=== PATIENT | male | born 1985 | race Caucasian/White ===

== ENCOUNTER 2017-01-25 17:54 | Emergency (ER) | payer OTHER ==
[2017-01-25 18:02] VITALS: BMI 48.4
--- NOTE | 2017-01-25 18:03 | PDOC ---
Rapid Medical Evaluation Time Seen by Provider: 01/25/17 17:57 Medical Evaluation: 01/25/17 18:01 I have performed a brief in-person evaluation of this patient. o The patient presents with a chief complaint of: Urinary pain, frequency, Rt lower back pain, was sent by kirstin CURRY r/o kidney stones. o Pertinent physical exam findings:Mid abdominal pain. + right CVA tenderness. o I have ordered the following: Urinalysis, urine culture, cbc, cmp. o The patient will proceed to the ED for further evaluation.
[2017-01-25 18:36] LABS: BASOPHIL 0.6 % (0-2.0); EOSINOPHIL 2.2 % (0-4.5); MCH 27.2 pg (25.7-33.7); MCHC 31.9 g/dl (32.0-35.9); MEAN CELL VOLUME 85.3 fl (80-96); MEAN PLT VOLUME 8.7 fl (7.5-11.1); NEUTROPHILS 72.6 % (42.8-82.8); PLATELET COUNT 321 K/MM3 (134-434); RDW 14.7 % (11.9-15.9); WHITE BLOOD COUNT 13.8 K/mm3 (4.0-10.0)
[2017-01-25 18:59] LABS: ALBUMIN 3.4 g/dl (3.4-5.0); CALCIUM 9.2 mg/dL (8.5-10.1); COCKROFT - GAULT 116.54; CREATININE 1.8 mg/dL (0.7-1.3); TOT PROT 7.4 g/dl (6.4-8.2)
[2017-01-25 19:03] LABS: BILIRUBIN,TOTAL 0.4 mg/dL (0.2-1.0)
[2017-01-25] MEDS ORDERED: SODIUM CHLORIDE 1,000 ML IV STA (19:22)
[2017-01-25] MEDS ORDERED: KETOROLAC TROMETHAMINE 30 MG/1 ML VIAL IM ONE (19:22)
[2017-01-25] MEDS ORDERED: ONDANSETRON 4 MG/2 ML VIAL IVPB ONE (19:22)
--- NOTE | 2017-01-25 19:28 | PDOC ---
History of Present Illness - General Chief Complaint: Pain, Acute Stated Complaint: PCP SENT/PAIN, ACUTE Time Seen by Provider: 01/25/17 17:57 History Source: Patient Exam Limitations: No Limitations - History of Present Illness Travel History: No Initial Comments: 01/25/17 19:23 31yo Male patient w/ PmHx: Gout, and Obesity presents to ED c/o right flank pain that began Tuesday and worsened Tuesday. Patient state he was seen at [facility] and sent for an Ultrasound that showed his "Kidneys are strained. " But was informed he needed a Ct-Scan. Associated frequent urination, n/v. Last meal today: 1530. Patient denies fever, CP, diarrhea, diff breathing, sweating, or any other complaints at this time. + Smoker. No PCP. Timing/Duration: reports: getting worse Quality: reports: moderate Abdominal Pain Onset Location: reports: flank Pain Radiation: reports: groin Activities at Onset: reports: no specific activity Treatment Prior to Arrive: worse with: analgesics, antacids, cold pack, heat, laxative, enema, other Aggravating Factors: worse with: None, Defecation, Eating, Emotional upset, Exertion, [place], Movement, Voiding, Change in position Past History - Travel Traveled outside of the country in the last 30 days: No Close contact w/someone who was outside of country & ill: No - Past Medical History Allergies/Adverse Reactions: Allergies Allergy/AdvReac Type Severity Reaction Status Date / Time No Known Allergies Allergy Verified 01/25/17 20:32 Home Medications: Ambulatory Orders Ketorolac Tromethamine [Toradol] 10 mg PO Q6H PRN #28 tablet 01/25/17 Ondansetron [Zofran Odt -] 4 mg SL Q8H PRN #30 od.tablet 01/25/17 Tamsulosin HCl [Flomax] 0.4 mg PO DAILY #30 cap.er.24h 01/25/17 Other medical history: GOUT - Psycho/Social/Smoking Cessation Hx Suicidal Ideation: No Smoking History: Current every day smoker Number of Cigarettes Smoked Daily: 10 Information on smoking cessation initiated: No Hx Alcohol Use: No Drug/Substance Use Hx: No Abd/GI Specific PMHX - Complaint Specific PMHX Colitis: No Diverticulitis: No Gall Bladder Disease: No GERD: No Hepatitis: No Irritable Bowel Synd (IBS): No Pancreatitis: No GI Ulcer Disease: No Review of Systems - Review of Systems Able to Perform ROS?: Yes Is the patient limited Bangladeshi proficient: No Constitutional: No: Chills, Fever Respiratory: No: Cough, Shortness of Breath, Stridor Cardiac (ROS): No: Chest Pain, Lightheadedness, Palpitations, Syncope, Chest Tightness ABD/GI: Yes: Nausea, Vomiting, Other (Groin pain). No: Constipated, Diarrhea, Poor Appetite, Poor Fluid Intake : Yes: Frequency. No: Dysuria, Hematuria, Pain, Urgency Musculoskeletal: Yes: Back Pain Integumentary: No: Bruising, Erythema, Rash Neurological: No: Headache, Unsteady Gait, Dizziness All Other Systems: Reviewed and Negative *Physical Exam - Vital Signs Last Vital Signs Temp Pulse Resp BP Pulse Ox 97.9 F 111 H 24 160/82 95 01/25/17 17:59 01/25/17 17:59 01/25/17 17:59 01/25/17 17:59 01/25/17 17:59 - Physical Exam General Appearance: Yes: Nourished, Appropriately Dressed, Mild Distress. No: Apparent Distress, Moderate Distress, Severe Distress Respiratory/Chest: positive: Lungs Clear, Normal Breath Sounds. negative: Chest Tender, Respiratory Distress, Accessory Muscle Use, Labored Respiration, Rapid RR Cardiovascular: positive: Regular Rhythm, Regular Rate Gastrointestinal/Abdominal: positive: Normal Bowel Sounds, Soft, Other (Large Abdomen). negative: Tender, Distended, Guarding, Rebound, Tenderness Musculoskeletal: positive: Normal Inspection, CVA Tenderness, CVA Tenderness (R ) (Mild). negative: CVA Tenderness (L), Vertebral Tenderness Extremity: positive: Normal Capillary Refill, Normal Inspection, Normal Range of Motion. negative: Pedal Edema, Swelling, Calf Tenderness, Erythema, Inflammation Integumentary: positive: Normal Color, Dry, Warm Neurologic: positive: stockroom keeper II-XII NML intact, Fully Oriented, Alert, Normal Mood/ Affect, Normal Response, Motor Strength 5/5 ED Treatment Course - LABORATORY CBC & Chemistry Diagram: 01/25/17 18:15 01/25/17 18:15 - ADDITIONAL ORDERS Additional order review: Laboratory Results 01/25/17 18:15 Sodium 142 Potassium 4.4 Chloride 104 Carbon Dioxide 31 Anion Gap 7 L BUN 21 H Creatinine 1.8 H Creat Clearance w eGFR 44.83 Random Glucose 173 H Calcium 9.2 Total Bilirubin 0.4 AST 15 ALT 29 Alkaline Phosphatase 86 Total Protein 7.4 Albumin 3.4 01/25/17 18:15 RBC 4.73 MCV 85.3 MCHC 31.9 L RDW 14.7 MPV 8.7 Neutrophils % 72.6 Lymphocytes % 16.5 Monocytes % 8.1 Eosinophils % 2.2 Basophils % 0.6 - RADIOLOGY Radiology Studies Ordered: Category Date Time Status ABDOMEN & PELVIS CT W/O CONTR [CT] Stat CT Scan 01/25/17 19:21 Ordered *DC/Admit/Observation/Transfer Diagnosis at time of Disposition: Renal colic - Discharge Dispostion Disposition: HOME Condition at time of disposition: Improved Admit: No - Prescriptions Prescriptions: Tamsulosin HCl [Flomax] 0.4 mg PO DAILY #30 cap.er.24h Ketorolac Tromethamine [Toradol] 10 mg PO Q6H PRN #28 tablet PRN Reason: Pain Ondansetron [Zofran Odt -] 4 mg SL Q8H PRN #30 od.tablet PRN Reason: Nausea - Referrals Referrals: Sameer Dunaway MD., MD [Staff Physician] - - Patient Instructions Printed Discharge Instructions: Kidney Stones -- Adult Additional Instructions: FOLLOW UP WITH DR. DUNAWAY (UROLOGY). CALL TO SCHEDULE APPOINTMENT THIS WEEK FOR FURTHER EVALUATION. TAKE MEDICATIONS PRESCRIBED. TORADOL OR TYLENOL FOR PAIN NEEDED. DRINK PLENTY FLUID. DO NOT TAKE EXTRA IBUPROFEN/MOTRIN WHILE TAKING TORADOL. RETURN IF SYMPTOMS WORSEN OR ANY CONCERNS FOR FURTHER EVALUATION. - FLOMAX: HELP PASS STONE. - TORADOL: ANTIINFLAMMATORY. - ZOFRAN: NAUSEA. Print Language: LAO
[2017-01-25 19:30] LABS: URINE APPEARANCE CLEAR; URINE BILIRUBIN NEGATIVE (NEGATIVE); URINE BLOOD 1+ (NEGATIVE); URINE COLOR STRAW; URINE GLUCOSE (UA) 1+ (NEGATIVE); URINE KETONE NEGATIVE (NEGATIVE); URINE LEUK ESTERASE NEGATIVE (NEGATIVE); URINE NITRITE NEGATIVE (NEGATIVE); URINE PROTEIN NEGATIVE (NEGATIVE); URINE UROBILINOGEN NEGATIVE E.U./dl (0.2-1.0)
[2017-01-25 19:35] LABS: URINE RBC 10 /hpf (0-3)
--- NOTE | 2017-01-25 19:54 | PDOC ---
*Physical Exam - Vital Signs Last Vital Signs Temp Pulse Resp BP Pulse Ox 97.9 F 111 H 24 160/82 95 01/25/17 17:59 01/25/17 17:59 01/25/17 17:59 01/25/17 17:59 01/25/17 17:59 ED Treatment Course - LABORATORY CBC & Chemistry Diagram: 01/25/17 18:15 01/25/17 18:15 - ADDITIONAL ORDERS Additional order review: Laboratory Results 01/25/17 01/25/17 18:15 18:15 Sodium 142 Potassium 4.4 Chloride 104 Carbon Dioxide 31 Anion Gap 7 L BUN 21 H Creatinine 1.8 H Creat Clearance w eGFR 44.83 Random Glucose 173 H Calcium 9.2 Total Bilirubin 0.4 AST 15 ALT 29 Alkaline Phosphatase 86 Total Protein 7.4 Albumin 3.4 Urine Color Straw Urine Appearance Clear Urine pH 6.0 Urine Protein Negative Urine Glucose (UA) 1+ H Urine Ketones Negative Urine Blood 1+ H Urine Nitrite Negative Urine Bilirubin Negative Urine Urobilinogen Negative Ur Leukocyte Esterase Negative Urine RBC 10 Urine WBC None Ur Epithelial Cells Rare 01/25/17 18:15 RBC 4.73 MCV 85.3 MCHC 31.9 L RDW 14.7 MPV 8.7 Neutrophils % 72.6 Lymphocytes % 16.5 Monocytes % 8.1 Eosinophils % 2.2 Basophils % 0.6 Medical Decision Making - Medical Decision Making 01/25/17 19:54 agree with care from [facility] *DC/Admit/Observation/Transfer Diagnosis at time of Disposition: Renal colic - Prescriptions Prescriptions: Tamsulosin HCl [Flomax] 0.4 mg PO DAILY #30 cap.er.24h Ketorolac Tromethamine [Toradol] 10 mg PO Q6H PRN #28 tablet PRN Reason: Pain Ondansetron [Zofran Odt -] 4 mg SL Q8H PRN #30 od.tablet PRN Reason: Nausea - Referrals Referrals: Sameer Dunaway MD., MD [Staff Physician] - - Patient Instructions Printed Discharge Instructions: Kidney Stones -- Adult Additional Instructions: FOLLOW UP WITH DR. DUNAWAY (UROLOGY). CALL TO SCHEDULE APPOINTMENT THIS WEEK FOR FURTHER EVALUATION. TAKE MEDICATIONS PRESCRIBED. TORADOL OR TYLENOL FOR PAIN NEEDED. DRINK PLENTY FLUID. DO NOT TAKE EXTRA IBUPROFEN/MOTRIN WHILE TAKING TORADOL. RETURN IF SYMPTOMS WORSEN OR ANY CONCERNS FOR FURTHER EVALUATION. - FLOMAX: HELP PASS STONE. - TORADOL: ANTIINFLAMMATORY. - ZOFRAN: NAUSEA. Print Language: ITALIAN
[2017-01-25] MEDS ORDERED: ONDANSETRON 4 MG/2 ML VIAL ONE (20:04)
[2017-01-25] MEDS ORDERED: KETOROLAC TROMETHAMINE 30 MG/1 ML VIAL ONE (20:04)
[2017-01-25] MEDS ORDERED: TAMSULOSIN HCL 0.4 MG CAP.ER.24H (FP) PO ONE (22:11)
[2017-01-25] MEDS ORDERED: ACETAMINOPHEN 325 MG TABLET (FP) PO ONE (22:12)
[2017-01-25] MEDS ORDERED: ACETAMINOPHEN 325 MG TABLET (FP) ONE (22:17)
[2017-01-25] MEDS ORDERED: TAMSULOSIN HCL 0.4 MG CAP.ER.24H (FP) ONE (22:17)
[2017-01-25 22:22] VITALS: BP 156/80; PULSE 89; TEMP 98
== END 2017-01-25 22:22 | disposition home or self-care (01) ==
LOC: JER 17:54
PROC: 3E0233Z Introduction of Anti-inflammatory into Muscle, Percutaneous Approach (ICD-10-PCS; principal; 2017-01-25)
PROC: 3E033GC Introduction of Other Therapeutic Substance into Peripheral Vein, Percutaneous Approach (ICD-10-PCS; 2017-01-25)
PROC: 3E0337Z Introduction of Electrolytic and Water Balance Substance into Peripheral Vein, Percutaneous Approach (ICD-10-PCS; 2017-01-25)
DX: N23 Unspecified renal colic (principal)
CPT/HCPCS: 36415; 74176-TC; 80053; 81003; 81015; 85025; 87086; 96361; 96372; 96374; 99283-25

== ENCOUNTER 2018-03-11 10:39 | Inpatient (IN) | payer OTHER ==
[2018-03-11 14:14] VITALS: BMI 54.8
--- NOTE | 2018-03-11 15:11 | HP ---
COWS - Scale Resting Pulse: 0= [place] 80 or Below Sweatin=Flushed/Facial Moisture Restless Observation: 1= Difficult to Sit Still Pupil Size: 1= Pupils >than Normal Bone or Joint Aches: 2= Severe Diffuse Aches Runny Nose/ Eye Tearin= Runny Nose/Eyes GI Upset > 30mins: 2= Nausea/Diarrhea Tremor Observation: 2= Slight Tremor Visible Yawning Observation: 1= 1-2x During Session Anxiety or Irritability: 2=Irritable/Anxious Goose Flesh Skin: 0=Smooth Skin COWS Score: 15 Admission ROS S - HPI Chief Complaint: "I want to get clean again and get back on track" Allergies/Adverse Reactions: Allergies Allergy/AdvReac Type Severity Reaction Status Date / Time No Known Allergies Allergy Verified 01/25/17 20:32 History of Present Illness: 32 y/o male with opioid and benzo dependence presents for detox. He reports several detox treatments in the past, this is his [facility]st time at [facility]. Exam Limitations: No Limitations - Ebola screening Have you traveled outside of the country in the last 21 days: No (N) Have you had contact with anyone from an Ebola affected area: No Have you been sick,other than usual withdrawal symptoms: No Do you have a fever: No - Review of Systems Constitutional: Loss of Appetite, Night Sweats, Changes in sleep EENT: reports: Blurred Vision, Nose Congestion Respiratory: reports: Cough Cardiac: reports: No Symptoms Reported GI: reports: Nausea, Poor Appetite, Abdominal cramping : reports: No Symptoms Reported Musculoskeletal: reports: Muscle Pain, Muscle Weakness Integumentary: reports: No Symptoms Reported Neuro: reports: Headache, Tremors Endocrine: reports: No Symptoms Reported Hematology: reports: No Symptoms Reported Psychiatric: reports: Agitated, Anxious, Depressed Patient History - Patient Medical History Hx Anemia: No Hx Asthma: No Hx Chronic Obstructive Pulmonary Disease (COPD): No Hx Cancer: No Hx Cardiac Disorders: No Hx Congestive Heart Failure: No Hx Hypertension: No Hx Hypercholesterolemia: No Hx Pacemaker: No HX Cerebrovascular Accident: No Hx Seizures: No Hx Dementia: No Hx Diabetes: No Hx Gastrointestinal Disorders: No Hx Liver Disease: No Hx Genitourinary Disorders: No Hx Sexually Transmitted Disorders: No Hx Renal Disease (ESRD): No Hx Thyroid Disease: No Hx Human Immunodeficiency Virus (HIV): No Hx Hepatitis C: No Hx Depression: Yes Hx Suicide Attempt: No Hx Bipolar Disorder: No Hx Schizophrenia: No - Patient Surgical History Past Surgical History: No - PPD History Previous Implant?: No Documented Results: Negative w/o proof Implanted On Prior [facility] Admission?: No PPD to be Administered?: Yes - Smoking Cessation Smoking history: Current every day smoker Aproximately how many cigarettes per day: 10 Hx Chewing Tobacco Use: No Initiated information on smoking cessation: Yes 'Breaking Loose' booklet given: 03/11/18 - Substance & Tx. History Hx Alcohol Use: No Hx Substance Use: Yes Substance Use Type: Heroin, Tranquilizers Hx Substance Use Treatment: Yes - Substances Abused Alprazolam (Xanax) Route: Oral Frequency: Daily Amount used: 2mg Age of first use: 18 Date of Last Use: 03/09/18 Heroin Frequency: Daily Amount used: 15 bags Age of first use: 24 Date of Last Use: 03/11/18 Marijuana/Hashish Route: Smoking Frequency: Daily Amount used: 1 gram Age of first use: 15 Date of Last Use: 03/10/18 Family Disease History - Family Disease History Family Disease History: Diabetes: Father, Heart Disease: Father, Other: Brother (drug use) Admission Physical Exam [facility] - Vital Signs Vital Signs: Vital Signs - 24 hr 03/11/18 14:13 Temperature 98.2 F Pulse Rate 79 Respiratory 20 Rate Blood Pressure 154/89 - Physical General Appearance: Yes: Obese HEENTM: Yes: EOMI, Normal ENT Inspection, Normocephalic, Normal Voice Respiratory: Yes: Chest Non-Tender, Lungs Clear, Normal Breath Sounds, No Respiratory Distress, No Accessory Muscle Use Neck: Yes: No masses,lesions,Nodules, Supple, Trachea in good position Breast: Yes: Breast Exam Deferred Cardiology: Yes: Regular Rhythm, Regular Rate, S1, S2 Abdominal: Yes: Normal Bowel Sounds, Non Tender, Soft Genitourinary: Yes: Within Normal Limits Back: Yes: Normal Inspection Musculoskeletal: Yes: full range of Motion, Muscle Pain Extremities: Yes: Normal Capillary Refill, Normal Range of Motion, Tremors Neurological: Yes: industry analyst II-XII NML intact, Fully Oriented, Alert, Normal Mood/ Affect, Normal Response Integumentary: Yes: Track [place], Other (right antecubital area redness from drug use) Lymphatic: Yes: Within Normal Limits - Diagnostic (1) Obese Current Visit: Yes Status: Acute (2) Opioid dependence Current Visit: Yes Status: Acute (3) Sedative hypnotic or anxiolytic dependence Current Visit: Yes Status: Acute (4) Nicotine dependence Current Visit: Yes Status: Acute Cleared for Admission [facility] - Detox or Rehab [facility] Level of Care: Medically Managed Detox Regimen/Protocol: Methadone/Librium S Breath Alcohol Content Breath Alcohol Content: 0 Urine Drug Screen - Results Drug Screen Negative: No Urine Drug Screen Results: THC-Marijuana, OPI-Opiates, OXY-Oxycodone
[2018-03-11] MEDS ORDERED: MENTHOL/PHENOL 1 EACH UD MM PRN (15:17)
[2018-03-11] MEDS ORDERED: hydrOXYzine PAMOATE 50 MG CAPSULE (FP) PO PRN (15:17)
[2018-03-11] MEDS ORDERED: P-EPHED 60MG/TRIPROLIDI 2.5MG TABLET PO PRN (15:17)
[2018-03-11] MEDS ORDERED: METHADONE HCL 10 MG TABLET (FOR DETOX USE ONLY) PO ONE ×2 (15:17→23:00)
[2018-03-11] MEDS ORDERED: chlordiazePOXIDE HCL 25 MG CAPSULE PO PRN (15:17)
[2018-03-11] MEDS ORDERED: chlordiazePOXIDE HCL 25 MG CAPSULE PO ONE (15:17)
[2018-03-11] MEDS ORDERED: LOPERAMIDE HCL 2 MG CAPSULE PO PRN (15:17)
[2018-03-11] MEDS ORDERED: MAG HYDROX/AL HYDROX/SIMETH 30 ML UNIT-DOSE CUP PO PRN (15:17)
[2018-03-11] MEDS ORDERED: MAGNESIUM CITRATE 300 ML BOTTLE PO PRN (15:17)
[2018-03-11] MEDS ORDERED: MAGNESIUM HYDROX 2400MG/30ML ORAL SUSPENSION 30 ML CUP PO PRN (15:17)
[2018-03-11] MEDS ORDERED: guaiFENesin/D-METHORPHAN HB 10 ML UNIT-DOSE CUPS PO PRN (15:17)
[2018-03-11] MEDS ORDERED: ACETAMINOPHEN 325 MG TABLET (FP) PO PRN (15:17)
[2018-03-11] MEDS ORDERED: NICOTINE POLACRILEX 2 MG GUM BUC PRN (15:25)
[2018-03-11] MEDS: chlordiazePOXIDE HCL 25 MG CAPSULE PO SCH ×2 (17:32→22:19)
[2018-03-11] MEDS: THIAMINE HCL 100 MG TABLET (FP) PO SCH (22:20)
[2018-03-11] MEDS: BACITRACIN 15 GM TUBE TOPICAL OINTMENT TP SCH (22:20)
[2018-03-12 02:08] LABS: URINE APPEARANCE CLEAR; URINE BILIRUBIN NEGATIVE (<2.0 mg/dL); URINE COLOR LTYELLOW; URINE GLUCOSE (UA) NEGATIVE (NEGATIVE); URINE KETONE NEGATIVE (NEGATIVE); URINE LEUK ESTERASE NEGATIVE (NEGATIVE); URINE NITRITE NEGATIVE (NEGATIVE); URINE PROTEIN NEGATIVE (NEGATIVE); URINE UROBILINOGEN NEGATIVE mg/dL (0.2-1.0)
[2018-03-12] MEDS: chlordiazePOXIDE HCL 25 MG CAPSULE PO SCH ×4 (05:10→22:10)
--- NOTE | 2018-03-12 07:43 | CONSULT ---
[facility] Psychiatric Consult - Data Date of interview: 03/12/18 Admission source: Self-referred Identifying data: Mr Delaney is a 32 years old single male, unemployed with no source of income, domiciled living with his father seeking detox treatment for opioid, benzodiazepine and cannabis Substance Abuse History: Reports history of heroin, xanax and marijuana use. Refer to addiction counselor's summary for further information Medical History: Unremarkable. Smokes 10 cigarettes daily Psychiatric History: Denies history of previous psychiatric treatment Physical/Sexual Abuse/Trauma History: Denies history of emotional, physical or sexual abuse as well as DV relationship. No service Additional Comment: Reports history of 3-4 previous misdemeanor arrests. Denies being on orobation at present Mental Status Exam - Mental Status Exam Alert and Oriented to: Time, Place, Person Cognitive Function: Fair Patient Appearance: Well Groomed Mood: Anxious Affect: Appropriate Patient Behavior: Cooperative Speech Pattern: Clear Voice Loudness: Normal Thought Process: Intact, Goal Oriented Hallucinations: Denies Suicidal Ideation: Denies Homicidal Ideation: Denies Insight/Judgement: Fair Sleep: Well Appetite: Fair Muscle strength/Tone: Normal Gait/Station: Normal Psychiatric Findings - Problem List ([place] 1, 2,3) (1) Substance-induced anxiety disorder Current Visit: Yes Status: Acute (2) Opioid dependence with withdrawal Current Visit: Yes Status: Acute (3) Sedative hypnotic or anxiolytic dependence Current Visit: Yes Status: Acute (4) Cannabis dependence Current Visit: Yes Status: Acute (5) Nicotine dependence Current Visit: Yes Status: Chronic - Initial Treatment Plan Initial Treatment Plan: Continue inpatient detoxification
[2018-03-12] MEDS ORDERED: METHADONE HCL 10 MG TABLET (FOR DETOX USE ONLY) PO SCH (10:00)
[2018-03-12] MEDS: PRENATAL VITAMINS W/ FOLIC ACID TABLET (FP) PO SCH (10:09)
[2018-03-12] MEDS: NICOTINE 14 MG/24 HOURS TOPICAL PATCH TD SCH (10:10)
[2018-03-12 10:13] LABS: HEMATOCRIT 37.6 % (35.4-49); HEMOGLOBIN 12.5 GM/dL (11.7-16.9); MCH 27.6 pg (25.7-33.7); MCHC 33.2 g/dl (32.0-35.9); MEAN CELL VOLUME 83.1 fl (80-96); MEAN PLT VOLUME 8.9 fl (7.5-11.1); PLATELET COUNT 251 K/MM3 (134-434); RBC 4.53 M/mm3 (4.00-5.60); RDW 14.9 % (11.9-15.9); WHITE BLOOD COUNT 8.7 K/mm3 (4.0-10.0)
[2018-03-12] MEDS: IBUPROFEN 400 MG TABLET (FP) PO PRN ×2 (10:14→17:21)
[2018-03-12 10:22] LABS: ALBUMIN 2.9 g/dl (3.4-5.0); ANION GAP 6 (8-16); BLOOD UREA NITROGEN 12 mg/dL (7-18); CALCIUM 8.8 mg/dL (8.5-10.1); CHLORIDE 105 mmol/L (98-107); CO2 30 mmol/L (21-32); GLUCOSE,RANDOM 108 mg/dL (74-106); POTASSIUM 3.8 mmol/L (3.5-5.1); SODIUM 141 mmol/L (136-145)
[2018-03-12 10:27] LABS: ALK PHOS 69 U/L (45-117); BILIRUBIN,TOTAL 0.3 mg/dL (0.2-1.0); SGOT/AST 12 U/L (15-37); SGPT/ALT 18 U/L (12-78); TOT PROT 6.8 g/dl (6.4-8.2)
[2018-03-12] MEDS: BACITRACIN 15 GM TUBE TOPICAL OINTMENT TP SCH ×2 (11:36→23:45)
--- NOTE | 2018-03-12 13:59 | PN ---
[facility] CIWA - CIWA Score Nausea/Vomitin-No Nausea/No Vomiting Muscle Tremors: None Anxiety: 0-No Anxiety, at Ease Agitation: 0-Normal Activity Paroxysmal Sweats: No Perspiration Orientation: 0-Oriented Tacttile Disturbances: 0-None Auditory Disturbances: 0-None Visual Disturbances: 0-None Headache: 0-None Present CIWA-Ar Total Score: 0 S COWS - Scale Resting Pulse: 1= [place] 81-100 Sweatin= No chills or Flushing Restless Observation: 0= Sits Still Pupil Size: 0= Normal to Room Light Bone or Joint Aches: 1= Mild Discomfort Runny Nose/ Eye Tearin= Nasal Congestion GI Upset > 30mins: 0= None Tremor Observation of Outstretched Hands: 0= None Yawning Observation: 0= None Anxiety or Irritability: 0= None Goose Flesh Skin: 0=Smooth Skin COWS Score: 3 S Progress Note (SOAP) Subjective: pt states feeling OK. Objective: 03/12/18 13:57 Breath Alcohol Content Breath Alcohol Content 0 Vital Signs - 24 hr 03/11/18 03/11/18 03/11/18 14:13 18:12 22:17 Temperature 98.2 F 98.6 F 98.3 F Pulse Rate 79 69 69 Respiratory 20 18 18 Rate Blood Pressure 154/89 143/88 132/71 03/12/18 03/12/18 03/12/18 00:30 03:30 06:18 Temperature 97.9 F Pulse Rate 66 Respiratory 18 18 18 Rate Blood Pressure 128/80 03/12/18 03/12/18 03/12/18 06:30 09:18 13:26 Temperature 98.1 F 96.7 F L Pulse Rate 71 69 Respiratory 18 18 18 Rate Blood Pressure 146/96 125/78 Laboratory Tests 03/12/18 03/12/18 03/12/18 01:00 07:45 07:45 WBC 8.7 RBC 4.53 Hgb 12.5 Hct 37.6 MCV 83.1 MCH 27.6 MCHC 33.2 RDW 14.9 Plt Count 251 D MPV 8.9 Sodium 141 Potassium 3.8 Chloride 105 Carbon Dioxide 30 Anion Gap 6 L BUN 12 Creatinine 1.0 Creat Clearance w eGFR > 60 Random Glucose 108 H D Calcium 8.8 Total Bilirubin 0.3 AST 12 L ALT 18 D Alkaline Phosphatase 69 Total Protein 6.8 Albumin 2.9 L Urine Color Ltyellow Urine Appearance Clear Urine pH 5.0 Ur Specific [place] 1.019 Urine Protein Negative Urine Glucose (UA) Negative Urine Ketones Negative Urine Blood Negative Urine Nitrite Negative Urine Bilirubin Negative Urine Urobilinogen Negative Ur Leukocyte Esterase Negative RPR Titer 03/12/18 07:45 WBC RBC Hgb Hct MCV MCH MCHC RDW Plt Count MPV Sodium Potassium Chloride Carbon Dioxide Anion Gap BUN Creatinine Creat Clearance w eGFR Random Glucose Calcium Total Bilirubin AST ALT Alkaline Phosphatase Total Protein Albumin Urine Color Urine Appearance Urine pH Ur Specific [place] Urine Protein Urine Glucose (UA) Urine Ketones Urine Blood Urine Nitrite Urine Bilirubin Urine Urobilinogen Ur Leukocyte Esterase RPR Titer Nonreactive labs WNL VS WNL pt lying in bed Assessment: 03/12/18 13:58 32 y/o male with opioid and benzo dependence- detox protocols. Plan: continue detox protocol
[2018-03-12] MEDS: MELATONIN 5 MG TABLETS PO PRN (22:10)
[2018-03-12] MEDS: THIAMINE HCL 100 MG TABLET (FP) PO SCH (22:10)
[2018-03-13] MEDS: chlordiazePOXIDE HCL 25 MG CAPSULE PO SCH ×2 (05:43→10:15)
[2018-03-13] MEDS: IBUPROFEN 400 MG TABLET (FP) PO PRN (05:44)
[2018-03-13] MEDS ORDERED: METHADONE HCL 5 MG TABLET (FOR DETOX USE ONLY) PO SCH (10:00)
[2018-03-13] MEDS: PRENATAL VITAMINS W/ FOLIC ACID TABLET (FP) PO SCH (10:15)
[2018-03-13] MEDS: NICOTINE 14 MG/24 HOURS TOPICAL PATCH TD SCH (10:16)
--- NOTE | 2018-03-13 10:53 | EKG ---
Test Reason : Blood Pressure : / mmHG Vent. Rate : 073 BPM Atrial Rate : 073 BPM P-R Int : 158 ms QRS Dur : 096 ms QT Int : 404 ms P-R-T Axes : 018 -03 028 degrees QTc Int : 445 ms NORMAL SINUS RHYTHM INCOMPLETE RIGHT BUNDLE BRANCH BLOCK BORDERLINE ECG NO PREVIOUS ECGS AVAILABLE Confirmed by ANTONY OSCAR MD ([id number]) on 03/13/2018 10:53:25 AM Referred By: Confirmed By:ANTONY OSCAR MD
[2018-03-13] MEDS: BACITRACIN 15 GM TUBE TOPICAL OINTMENT TP SCH ×2 (11:10→22:26)
--- NOTE | 2018-03-13 12:00 | PN ---
BHS COWS - Scale Resting Pulse: 0= [place] 80 or Below Sweatin= Chills/Flushing Restless Observation: 1= Difficult to Sit Still Pupil Size: 0= Normal to Room Light Bone or Joint Aches: 0= None Runny Nose/ Eye Tearin= Nasal Congestion GI Upset > 30mins: 1= Stomach Cramp Tremor Observation of Outstretched Hands: 0= None Yawning Observation: 1= 1-2x During Session Anxiety or Irritability: 2=Irritable/Anxious Goose Flesh Skin: 3=[place] COWS Score: 10 BHS Progress Note (SOAP) Subjective: Chills, Stomach Cramping, Constipation. Objective: PATIENT A & O X 3, OBSERVED AMBULATING ON UNIT. NO ACUTE DISTRESS. 03/13/18 11:58 Vital Signs Temperature 97.3 F L 03/13/18 09:39 Pulse Rate 61 03/13/18 09:39 Respiratory Rate 18 03/13/18 09:39 Blood Pressure 134/92 03/13/18 09:39 O2 Sat by Pulse Oximetry (%) Laboratory Tests 03/12/18 03/12/18 03/12/18 01:00 07:45 07:45 WBC 8.7 RBC 4.53 Hgb 12.5 Hct 37.6 MCV 83.1 MCH 27.6 MCHC 33.2 RDW 14.9 Plt Count 251 D MPV 8.9 Sodium 141 Potassium 3.8 Chloride 105 Carbon Dioxide 30 Anion Gap 6 L BUN 12 Creatinine 1.0 Creat Clearance w eGFR > 60 Random Glucose 108 H D Calcium 8.8 Total Bilirubin 0.3 AST 12 L ALT 18 D Alkaline Phosphatase 69 Total Protein 6.8 Albumin 2.9 L Urine Color Ltyellow Urine Appearance Clear Urine pH 5.0 Ur Specific [place] 1.019 Urine Protein Negative Urine Glucose (UA) Negative Urine Ketones Negative Urine Blood Negative Urine Nitrite Negative Urine Bilirubin Negative Urine Urobilinogen Negative Ur Leukocyte Esterase Negative RPR Titer 03/12/18 07:45 WBC RBC Hgb Hct MCV MCH MCHC RDW Plt Count MPV Sodium Potassium Chloride Carbon Dioxide Anion Gap BUN Creatinine Creat Clearance w eGFR Random Glucose Calcium Total Bilirubin AST ALT Alkaline Phosphatase Total Protein Albumin Urine Color Urine Appearance Urine pH Ur Specific [place] Urine Protein Urine Glucose (UA) Urine Ketones Urine Blood Urine Nitrite Urine Bilirubin Urine Urobilinogen Ur Leukocyte Esterase RPR Titer Nonreactive LABS NOTED. Assessment: 03/13/18 11:59 WITHDRAWAL SYMPTOMS. Plan: CONTINUE DETOX. INCREASE DAILY PO FLUID INTAKE.
[2018-03-13] MEDS: chlordiazePOXIDE 5 MG CAPSULE PO SCH ×2 (16:45→22:25)
[2018-03-13] MEDS: THIAMINE HCL 100 MG TABLET (FP) PO SCH (22:25)
[2018-03-13] MEDS: MELATONIN 5 MG TABLETS PO PRN (22:25)
[2018-03-14] MEDS: chlordiazePOXIDE 5 MG CAPSULE PO SCH (05:42)
[2018-03-14] MEDS: IBUPROFEN 400 MG TABLET (FP) PO PRN (05:43)
[2018-03-14 06:10] VITALS: BP 130/82; PULSE 70; TEMP 97.1
--- NOTE | 2018-03-14 12:14 | PN ---
S Progress Note (SOAP) Subjective: PT DECLINED TO CONTINUE WITH DETOX. ALERT O X 3. NAD. PT REPORTS RECENTLY [place] FROM [place] AND HAS NO PMD. PT WILLING TO GO SET UP A PMD WITH [facility] AFTER DISCHARGE. PT REFERRED TO F/U WITH [facility] FOR AFTERCARE. Objective: 03/14/18 12:14 Vital Signs 03/14/18 06:09 Temperature 97.1 F L Pulse Rate 70 Respiratory 18 Rate Blood Pressure 130/82 Laboratory Tests 03/12/18 03/12/18 03/12/18 01:00 07:45 07:45 WBC 8.7 RBC 4.53 Hgb 12.5 Hct 37.6 MCV 83.1 MCH 27.6 MCHC 33.2 RDW 14.9 Plt Count 251 D MPV 8.9 Sodium 141 Potassium 3.8 Chloride 105 Carbon Dioxide 30 Anion Gap 6 L BUN 12 Creatinine 1.0 Creat Clearance w eGFR > 60 Random Glucose 108 H D Calcium 8.8 Total Bilirubin 0.3 AST 12 L ALT 18 D Alkaline Phosphatase 69 Total Protein 6.8 Albumin 2.9 L Urine Color Ltyellow Urine Appearance Clear Urine pH 5.0 Ur Specific [place] 1.019 Urine Protein Negative Urine Glucose (UA) Negative Urine Ketones Negative Urine Blood Negative Urine Nitrite Negative Urine Bilirubin Negative Urine Urobilinogen Negative Ur Leukocyte Esterase Negative RPR Titer 03/12/18 07:45 WBC RBC Hgb Hct MCV MCH MCHC RDW Plt Count MPV Sodium Potassium Chloride Carbon Dioxide Anion Gap BUN Creatinine Creat Clearance w eGFR Random Glucose Calcium Total Bilirubin AST ALT Alkaline Phosphatase Total Protein Albumin Urine Color Urine Appearance Urine pH Ur Specific [place] Urine Protein Urine Glucose (UA) Urine Ketones Urine Blood Urine Nitrite Urine Bilirubin Urine Urobilinogen Ur Leukocyte Esterase RPR Titer Nonreactive Assessment: 03/14/18 12:14 NAD Plan: PT SIGNED OUT AMA
--- NOTE | 2018-03-14 12:17 | DS ---
[facility] Detox Discharge Summary Admission Date: 03/11/18 Discharge Date: 03/14/18 - History Present History: Cannabis Dependence, Opioid Dependence, Sedative Dependence Additional Comments: PT DECLINED TO CONTINUE WITH DETOX. ALERT O X 3. WILL F/U WITH SETTING UP A PMD AT [facility]. Pertinent Past History: PLEASE SEE DX BELOW - Physical Exam Results Vital Signs: Vital Signs Temperature 97.1 F L 03/14/18 06:09 Pulse Rate 70 03/14/18 06:09 Respiratory Rate 18 03/14/18 06:09 Blood Pressure 130/82 03/14/18 06:09 O2 Sat by Pulse Oximetry (%) Pertinent Admission Physical Exam Findings: WITHDRAWAL SX Laboratory Tests 03/12/18 03/12/18 03/12/18 01:00 07:45 07:45 WBC 8.7 RBC 4.53 Hgb 12.5 Hct 37.6 MCV 83.1 MCH 27.6 MCHC 33.2 RDW 14.9 Plt Count 251 D MPV 8.9 Sodium 141 Potassium 3.8 Chloride 105 Carbon Dioxide 30 Anion Gap 6 L BUN 12 Creatinine 1.0 Creat Clearance w eGFR > 60 Random Glucose 108 H D Calcium 8.8 Total Bilirubin 0.3 AST 12 L ALT 18 D Alkaline Phosphatase 69 Total Protein 6.8 Albumin 2.9 L Urine Color Ltyellow Urine Appearance Clear Urine pH 5.0 Ur Specific [place] 1.019 Urine Protein Negative Urine Glucose (UA) Negative Urine Ketones Negative Urine Blood Negative Urine Nitrite Negative Urine Bilirubin Negative Urine Urobilinogen Negative Ur Leukocyte Esterase Negative RPR Titer 03/12/18 07:45 WBC RBC Hgb Hct MCV MCH MCHC RDW Plt Count MPV Sodium Potassium Chloride Carbon Dioxide Anion Gap BUN Creatinine Creat Clearance w eGFR Random Glucose Calcium Total Bilirubin AST ALT Alkaline Phosphatase Total Protein Albumin Urine Color Urine Appearance Urine pH Ur Specific [place] Urine Protein Urine Glucose (UA) Urine Ketones Urine Blood Urine Nitrite Urine Bilirubin Urine Urobilinogen Ur Leukocyte Esterase RPR Titer Nonreactive - Treatment Hospital Course: Detox Protocol Followed, Detoxed Safely, Responded well, Discharged Condition Good, Rehab Referral Accepted Patient has Accepted a [facility] - Medication Discharge Medications: Ambulatory Orders NK [No Known Home Medication] 03/11/18 - AMA Did Patient Leave Against Medical Advice: Yes (AMA)
[2018-03-14] MEDS ORDERED: chlordiazePOXIDE HCL 10 MG CAPSULE PO SCH (17:00)
[2018-03-15] MEDS ORDERED: METHADONE HCL 10 MG TABLET (FOR DETOX USE ONLY) PO SCH (10:00)
[2018-03-16] MEDS ORDERED: METHADONE HCL 5 MG TABLET (FOR DETOX USE ONLY) PO SCH (06:00)
== END 2018-03-14 09:32 | disposition left against medical advice (07) | DRG 770 ==
LOC: YASAS 10:39 → Y3N 16:49
PROVIDERS: ADMIT Surgery; ATTEND Surgery
PROC: HZ2ZZZZ Detoxification Services for Substance Abuse Treatment (ICD-10-PCS; principal; 2018-03-11)
DX: F11.23 Opioid dependence with withdrawal (principal); F13.230 Sedative, hypnotic or anxiolytic dependence with withdrawal, uncomplicated; F12.20 Cannabis dependence, uncomplicated; F17.213 Nicotine dependence, cigarettes, with withdrawal; F19.280 Other psychoactive substance dependence with psychoactive substance-induced anxiety disorder; E66.9 Obesity, unspecified; Z68.43 Body mass index [BMI] 50.0-59.9, adult
CPT/HCPCS: 36415; 80053; 81003; 85027; 86593; 93005; 93010

== ENCOUNTER 2018-05-10 10:25 | Inpatient (IN) | payer OTHER ==
[2018-05-10 10:43] VITALS: BMI 57.6
--- NOTE | 2018-05-10 11:50 | HP ---
COWS - Scale Resting Pulse: 1= [place] 81-100 Sweatin= Chills/Flushing Restless Observation: 3= Extraneous Movement Pupil Size: 1= Pupils >than Normal Bone or Joint Aches: 2= Severe Diffuse Aches Runny Nose/ Eye Tearin= Runny Nose/Eyes GI Upset > 30mins: 3= Vomiting/Diarrhea Tremor Observation: 2= Slight Tremor Visible Yawning Observation: 1= 1-2x During Session Anxiety or Irritability: 2=Irritable/Anxious Goose Flesh Skin: 0=Smooth Skin COWS Score: 18 CIWA Score - CIWA Score Nausea/Vomitin Muscle Tremors: 3 Anxiety: 3 Agitation: 2 Paroxysmal Sweats: 1-Minimal Palms Moist Orientation: 0-Oriented Tacttile Disturbances: 1-Very Mild Itch/Numbness Auditory Disturbances: 1-Very Mild Visual Disturbances: 1-Very Mild Sensitivity Headache: 2-Mild CIWA-Ar Total Score: 17 Admission ROS BHS - HPI Chief Complaint: i need help to stop using heroin ans xanax Allergies/Adverse Reactions: Allergies Allergy/AdvReac Type Severity Reaction Status Date / Time No Known Allergies Allergy Verified 03/11/18 16:43 History of Present Illness: this 32 years male with heroin and xanax dependence,seeking detox,withdrawal symptom,[facility] detox 03/11/18 to 03/14/18 obesity depression nicotine dependence longest period of sobriety 2 years multiple admissions in detox but relapsing Exam Limitations: No Limitations - Ebola screening Have you traveled outside of the country in the last 21 days: No Have you had contact with anyone from an Ebola affected area: No Have you been sick,other than usual withdrawal symptoms: No Do you have a fever: No - Review of Systems Constitutional: Chills, Loss of Appetite, Malaise, Night Sweats, Changes in sleep, Weakness EENT: reports: Tearing, Nose Congestion Respiratory: reports: No Symptoms reported Cardiac: reports: No Symptoms Reported GI: reports: Diarrhea, Nausea, Vomiting, Abdominal cramping : reports: No Symptoms Reported Musculoskeletal: reports: Back Pain, Joint Pain, Muscle Pain, Joint Stiffness Integumentary: reports: Dryness Neuro: reports: Headache, Tremors Endocrine: reports: No Symptoms Reported Hematology: reports: No Symptoms Reported Psychiatric: reports: No Sypmtoms Reported, Judgement Intact, Mood/Affect Appropiate, Orientated x3, Depressed Patient History - Patient Medical History Hx Anemia: No Hx Asthma: No Hx Chronic Obstructive Pulmonary Disease (COPD): No Hx Cancer: No Hx Cardiac Disorders: No Hx Congestive Heart Failure: No Hx Hypertension: No Hx Hypercholesterolemia: No Hx Pacemaker: No HX Cerebrovascular Accident: No Hx Seizures: No Hx Dementia: No Hx Diabetes: No Hx Gastrointestinal Disorders: No Hx Liver Disease: No Hx Genitourinary Disorders: No Hx Sexually Transmitted Disorders: No Hx Renal Disease (ESRD): No Hx Thyroid Disease: No Hx Human Immunodeficiency Virus (HIV): No (2016 negative) Hx Hepatitis C: No Hx Depression: Yes Hx Suicide Attempt: No Hx Bipolar Disorder: No Hx Schizophrenia: No Other Medical History: no suicidal,no homicidal - Patient Surgical History Past Surgical History: No Hx Neurologic Surgery: No Hx Cataract Extraction: No Hx Cardiac Surgery: No Hx Lung Surgery: No Hx Breast Surgery: No Hx Breast Biopsy: No Hx Abdominal Surgery: No Hx Appendectomy: No Hx Cholecystectomy: No Hx Genitourinary Surgery: No Hx Section: No Hx Orthopedic Surgery: No Anesthesia Reaction: No - PPD History Previous Implant?: Yes Documented Results: Negative w/proof Implanted On Prior R Admission?: No Date: 03/13/18 Results: NEGATIVE 0 mm PPD to be Administered?: No - Smoking Cessation Smoking history: Current every day smoker Have you smoked in the past 12 months: No Aproximately how many cigarettes per day: 20 Cigars Per Day: 0 Hx Chewing Tobacco Use: No Initiated information on smoking cessation: Yes 'Breaking Loose' booklet given: 05/10/18 - Substance & Tx. History Hx Alcohol Use: No Hx Substance Use: Yes Substance Use Type: Heroin, Marijuana, Tranquilizers - Substances Abused Heroin Route: Injection Frequency: Daily Amount used: 10-20 BAGS Age of first use: 24 Date of Last Use: 05/10/18 Alprazolam (Xanax) Route: Oral Frequency: 1-2 times per week Amount used: 1-2 MG Age of first use: 18 Date of Last Use: 05/03/18 Marijuana/Hashish Route: Smoking Frequency: 1-3 times last 30 days Amount used: 1 GRAM A DAY Age of first use: 15 Date of Last Use: 04/11/18 Family Disease History - Family Disease History Family Disease History: Diabetes: Father, Heart Disease: Father, Other: Brother (drug use) Admission Physical Exam [facility] - Vital Signs Vital Signs: Vital Signs - 24 hr 05/10/18 10:41 Temperature 98.1 F Pulse Rate 89 Respiratory 18 Rate Blood Pressure 138/86 - Physical General Appearance: Yes: Moderate Distress, Obese, Tremorous, Irritable, Sweating, Anxious HEENTM: Yes: Normal ENT Inspection, JENNIFER, Pharynx Normal Respiratory: Yes: Lungs Clear, Normal Breath Sounds, No Respiratory Distress Neck: Yes: Within Normal Limits, Supple, Trachea in good position Breast: Yes: Within Normal Limits Cardiology: Yes: Within Normal Limits, Regular Rhythm, Regular Rate, S1, S2 Abdominal: Yes: Within Normal Limits, Normal Bowel Sounds, Non Tender, Soft Genitourinary: Yes: Within Normal Limits Back: Yes: Muscle Spasm Extremities: Yes: Normal Range of Motion, Tremors Neurological: Yes: Fully Oriented, Alert, Motor Strength 5/5 Integumentary: Yes: Dry Lymphatic: Yes: Within Normal Limits - Diagnostic (1) Opioid dependence with withdrawal Current Visit: No Status: Acute (2) Cannabis dependence Current Visit: No Status: Acute (3) Nicotine dependence Current Visit: No Status: Acute Qualifiers: Nicotine product type: cigarettes Substance use status: in withdrawal Qualified Code(s): F17.213 - Nicotine dependence, cigarettes, with withdrawal (4) Sedative hypnotic or anxiolytic dependence Current Visit: Yes Status: Acute (5) Obese Current Visit: No Status: Chronic Qualifiers: Obesity type: unspecified obesity type Obesity classification: adult class 3 (BMI >= 40) Serious obesity comorbidity presence: unspecified whether serious comorbidity present Body mass index: BMI 50.0-59.9 Qualified Code(s) : E66.01 - Morbid (severe) obesity due to excess calories; Z68.43 - Body mass index (BMI) 50-59.9 , adult (6) Nicotine dependence Current Visit: Yes Status: Acute Cleared for Admission [facility] - Detox or Rehab [facility] Level of Care: Medically Managed Detox Regimen/Protocol: Methadone/Valium [facility] Breath Alcohol Content Breath Alcohol Content: 0 Urine Drug Screen - Results Drug Screen Negative: No Urine Drug Screen Results: OPI-Opiates, BZO-Benzodiazepines, OXY-Oxycodone
[2018-05-10] MEDS ORDERED: ACETAMINOPHEN 325 MG TABLET (FP) PO PRN (12:10)
[2018-05-10] MEDS ORDERED: MENTHOL/PHENOL 1 EACH UD MM PRN (12:10)
[2018-05-10] MEDS ORDERED: MAGNESIUM CITRATE 300 ML BOTTLE PO PRN (12:10)
[2018-05-10] MEDS ORDERED: LOPERAMIDE HCL 2 MG CAPSULE PO PRN (12:10)
[2018-05-10] MEDS ORDERED: P-EPHED 60MG/TRIPROLIDI 2.5MG TABLET PO PRN (12:10)
[2018-05-10] MEDS ORDERED: MAGNESIUM HYDROX 2400MG/30ML ORAL SUSPENSION 30 ML CUP PO PRN (12:10)
[2018-05-10] MEDS ORDERED: hydrOXYzine PAMOATE 25 MG CAPSULE (FP) PO PRN (12:10)
[2018-05-10] MEDS ORDERED: guaiFENesin/D-METHORPHAN HB 10 ML UNIT-DOSE CUPS PO PRN (12:10)
[2018-05-10] MEDS ORDERED: MAG HYDROX/AL HYDROX/SIMETH 30 ML UNIT-DOSE CUP PO PRN (12:10)
[2018-05-10] MEDS ORDERED: NICOTINE POLACRILEX 2 MG GUM BUC PRN (12:10)
[2018-05-10] MEDS ORDERED: METHADONE HCL 10 MG TABLET (FOR DETOX USE ONLY) PO ONE ×2 (13:00→23:00)
[2018-05-10] MEDS ORDERED: diazePAM 5 MG TABLET PO ONE (13:00)
[2018-05-10] MEDS: CYCLOBENZAPRINE HCL 10 MG TABLET (FP) PO PRN (13:30)
--- NOTE | 2018-05-10 13:44 | CONSULT ---
[facility] Psychiatric Consult - Data Date of interview: 05/10/18 Admission source: [facility] Identifying data: Patient is a 32 year old single male, without children, unemployed, and resides with father. Pt. is supported financially by family. This is one of multiple admissions for patient. Pt. admitted to for opiate dependence. Substance Abuse History: Smoking Cessation. Smoking history: Current every day smoker. Have you smoked in the past 12 months: No. Aproximately how many cigarettes per day: 20. Cigars Per Day: 0. Hx Chewing Tobacco Use: No. Initiated information on smoking cessation: Yes. 'Breaking Loose' booklet given : 05/10/18. - Substance & Tx. History. Hx Alcohol Use: No. Hx Substance Use: Yes. Substance Use Type: Heroin, Marijuana, Tranquilizers. - Substances Abused. Heroin. Route: Injection. Frequency: Daily. Amount used: 10-20 BAGS. Age of first use: 24. Date of Last Use: 05/10/18. Alprazolam (Xanax) . Route: Oral. Frequency: 1-2 times per week. Amount used: 1-2 MG. Age of first use: 18. Date of Last Use: 05/03/18. Marijuana/Hashish. Route: Smoking. Frequency: 1-3 times last 30 days. Amount used: 1 GRAM A DAY. Age of first use: 15. Date of Last Use: 04/11/18 Medical History: denies. Psychiatric History: Patient denies h/o psychiatric hospitalization, outpatient care, and suicide attempt. Mr. Delaney older brother last month via overdose. He is currently grieving but is motivated to complete detox and attend rehab. Pt. reports poor sleep. Physical/Sexual Abuse/Trauma History: denies. Mental Status Exam - Mental Status Exam Alert and Oriented to: Time, Place, Person Cognitive Function: Good Patient Appearance: Well Groomed Mood: Euthymic Affect: Mood Congruent Patient Behavior: Appropriate, Cooperative Speech Pattern: Appropriate Voice Loudness: Normal Thought Process: Intact, Goal Oriented Thought Disorder: Not Present Hallucinations: Denies Suicidal Ideation: Denies Homicidal Ideation: Denies Insight/Judgement: Poor Sleep: Poorly Appetite: Fair Muscle strength/Tone: Normal Gait/Station: Normal Psychiatric Findings - Problem List ([place] 1, 2,3) (1) Grieving Current Visit: Yes Status: Acute (2) Substance-induced sleep disorder Current Visit: Yes Status: Acute (3) Opioid dependence Current Visit: Yes Status: Acute (4) Sedative hypnotic or anxiolytic dependence Current Visit: Yes Status: Acute - Initial Treatment Plan Initial Treatment Plan: Psychoeducation provided. Detoxification in progress. Will order Melatonin 10mg qhs. Benefits and side effects discussed. Verbal consent given.
[2018-05-10] MEDS: diazePAM 5 MG TABLET PO SCH ×2 (14:34→22:17)
[2018-05-10] MEDS: NICOTINE 21 MG/24 HOURS TOPICAL PATCH TD SCH (14:34)
--- NOTE | 2018-05-10 15:26 | EKG ---
Test Reason : Blood Pressure : / mmHG Vent. Rate : 086 BPM Atrial Rate : 086 BPM P-R Int : 168 ms QRS Dur : 094 ms QT Int : 378 ms P-R-T Axes : 030 -16 032 degrees QTc Int : 452 ms NORMAL SINUS RHYTHM NORMAL ECG WHEN COMPARED WITH ECG OF 11-MAR-2018 17:08, INCOMPLETE RIGHT BUNDLE BRANCH BLOCK IS NO LONGER PRESENT Confirmed by DANYELLE CURRY, ELIZABETH ([id number]) on 05/10/2018 3:25:43 PM Referred By: Confirmed By:ELIZABETH BASSETT MD
[2018-05-10 18:36] LABS: URINE APPEARANCE CLEAR; URINE BILIRUBIN NEGATIVE (<2.0 mg/dL); URINE COLOR YELLOW; URINE GLUCOSE (UA) NEGATIVE (NEGATIVE); URINE KETONE NEGATIVE (NEGATIVE); URINE LEUK ESTERASE NEGATIVE (NEGATIVE); URINE NITRITE NEGATIVE (NEGATIVE); URINE PROTEIN NEGATIVE (NEGATIVE); URINE UROBILINOGEN NEGATIVE mg/dL (0.2-1.0)
[2018-05-10] MEDS ORDERED: cloNIDine HCL 0.1 MG TABLET PO SCH (22:00)
[2018-05-10] MEDS ORDERED: MELATONIN 5 MG TABLETS PO PRN (22:00)
[2018-05-10] MEDS: cloNIDine HCL 0.1 MG TABLET PO SCH (22:17)
[2018-05-10] MEDS: THIAMINE HCL 100 MG TABLET (FP) PO SCH (22:17)
[2018-05-11] MEDS: diazePAM 5 MG TABLET PO SCH ×3 (05:39→22:12)
[2018-05-11] MEDS ORDERED: METHADONE HCL 10 MG TABLET (FOR DETOX USE ONLY) PO SCH (10:00)
[2018-05-11] MEDS: NICOTINE 21 MG/24 HOURS TOPICAL PATCH TD SCH (10:12)
[2018-05-11] MEDS: cloNIDine HCL 0.1 MG TABLET PO SCH ×2 (10:12→22:12)
[2018-05-11] MEDS: PRENATAL VITAMINS W/ FOLIC ACID TABLET (FP) PO SCH (10:13)
[2018-05-11] MEDS ORDERED: ONDANSETRON *ODT* 4 MG TABLET SL PRN (10:15)
--- NOTE | 2018-05-11 11:53 | PN ---
[facility] CIWA - CIWA Score Nausea/Vomitin Muscle Tremors: 2 Anxiety: 3 Agitation: 3 Paroxysmal Sweats: 3 Orientation: 0-Oriented Tacttile Disturbances: 0-None Auditory Disturbances: 0-None Visual Disturbances: 0-None Headache: 0-None Present CIWA-Ar Total Score: 14 BHS COWS - Scale Resting Pulse: 0= ID 80 or Below Sweatin= Chills/Flushing Restless Observation: 1= Difficult to Sit Still Pupil Size: 1= Pupils >than Normal Bone or Joint Aches: 1= Mild Discomfort Runny Nose/ Eye Tearin= Runny Nose/Eyes GI Upset > 30mins: 3= Vomiting/Diarrhea Tremor Observation of Outstretched Hands: 1= Tremor [place], Not Seen Yawning Observation: 1= 1-2x During Session Anxiety or Irritability: 2=Irritable/Anxious Goose Flesh Skin: 0=Smooth Skin COWS Score: 13 S Progress Note (SOAP) Subjective: interrupted sleep, nausea and vomiting Objective: 05/11/18 11:53 Vital Signs Temperature 97.9 F 05/11/18 09:07 Pulse Rate 69 05/11/18 09:07 Respiratory Rate 20 05/11/18 09:07 Blood Pressure 140/86 05/11/18 09:07 O2 Sat by Pulse Oximetry (%) Laboratory Last Values Urine Color Yellow 05/10/18 14:40 Urine Appearance Clear 05/10/18 14:40 Urine pH 5.0 (5.0-8.0) 05/10/18 14:40 Ur Specific [place] 1.020 (1.001-1.035) 05/10/18 14:40 Urine Protein Negative (NEGATIVE) 05/10/18 14:40 Urine Glucose (UA) Negative (NEGATIVE) 05/10/18 14:40 Urine Ketones Negative (NEGATIVE) 05/10/18 14:40 Urine Blood Negative (NEGATIVE) 05/10/18 14:40 Urine Nitrite Negative (NEGATIVE) 05/10/18 14:40 Urine Bilirubin Negative (<2.0 mg/dL) 05/10/18 14:40 Urine Urobilinogen Negative mg/dL (0.2-1.0) 05/10/18 14:40 Ur Leukocyte Esterase Negative (NEGATIVE) 05/10/18 14:40 Aox3 no distress no adventitious breath sounds full ROM ambulating in unit Assessment: 05/11/18 15:29 withdrawal sx Plan: additional labs pending increase po fluids continue detox continue to monitor
[2018-05-11] MEDS: MELATONIN 5 MG TABLETS PO PRN (22:12)
[2018-05-11] MEDS: THIAMINE HCL 100 MG TABLET (FP) PO SCH (22:12)
[2018-05-12] MEDS: diazePAM 5 MG TABLET PO PRN ×3 (05:41→19:11)
[2018-05-12] MEDS: cloNIDine HCL 0.1 MG TABLET PO SCH ×2 (10:00→22:15)
[2018-05-12] MEDS: diazePAM 5 MG TABLET PO SCH ×2 (10:00→22:15)
[2018-05-12] MEDS: NICOTINE 21 MG/24 HOURS TOPICAL PATCH TD SCH (10:01)
[2018-05-12] MEDS: METHADONE HCL 5 MG TABLET (FOR DETOX USE ONLY) PO SCH (10:01)
[2018-05-12] MEDS: PRENATAL VITAMINS W/ FOLIC ACID TABLET (FP) PO SCH (10:02)
[2018-05-12 10:10] LABS: ALBUMIN 2.9 g/dl (3.4-5.0); ALK PHOS 77 U/L (45-117); ANION GAP 9 MMOL/L (8-16); BILIRUBIN,TOTAL 0.4 mg/dL (0.2-1); BLOOD UREA NITROGEN 7 mg/dL (7-18); CALCIUM 9.3 mg/dL (8.5-10.1); CHLORIDE 107 mmol/L (98-107); CO2 26 mmol/L (21-32); CREATININE 0.8 mg/dL (0.55-1.3); GLUCOSE,RANDOM 118 mg/dL (74-106); SGOT/AST 12 U/L (15-37); SGPT/ALT 32 U/L (13-61); SODIUM 142 mmol/L (136-145); TOT PROT 6.5 g/dl (6.4-8.2)
[2018-05-12 10:28] LABS: HEMOGLOBIN 11.7 GM/dL (11.7-16.9); MCH 27.1 pg (25.7-33.7); MCHC 33.3 g/dl (32.0-35.9); MEAN CELL VOLUME 81.6 fl (80-96); MEAN PLT VOLUME 9.8 fl (7.5-11.1); PLATELET COUNT 325 K/MM3 (134-434); RBC 4.29 M/mm3 (4.00-5.60); RDW 16.2 % (11.9-15.9); WHITE BLOOD COUNT 10.6 K/mm3 (4.0-10.0)
--- NOTE | 2018-05-12 11:40 | PN ---
[facility] CIWA - CIWA Score Nausea/Vomitin-No Nausea/No Vomiting Muscle Tremors: 3 Anxiety: 3 Agitation: 3 Paroxysmal Sweats: 3 Orientation: 0-Oriented Tacttile Disturbances: 0-None Auditory Disturbances: 0-None Visual Disturbances: 0-None Headache: 1-Very Mild CIWA-Ar Total Score: 13 BHS COWS - Scale Resting Pulse: 0= [place] 80 or Below Sweatin= Chills/Flushing Restless Observation: 3= Extraneous Movement Pupil Size: 0= Normal to Room Light Bone or Joint Aches: 2= Severe Diffuse Aches Runny Nose/ Eye Tearin= Runny Nose/Eyes GI Upset > 30mins: 1= Stomach Cramp Tremor Observation of Outstretched Hands: 2= Slight Tremor Visible Yawning Observation: 2= >3x During Session Anxiety or Irritability: 2=Irritable/Anxious Goose Flesh Skin: 0=Smooth Skin COWS Score: 15 S Progress Note (SOAP) Subjective: body aches sweats shakes nausea chills Objective: 05/12/18 11:40 Vital Signs Temperature 97.8 F 05/12/18 09:29 Pulse Rate 57 L 05/12/18 09:29 Respiratory Rate 20 05/12/18 09:29 Blood Pressure 132/84 05/12/18 09:29 O2 Sat by Pulse Oximetry (%) Laboratory Tests 05/10/18 05/12/18 05/12/18 14:40 07:00 07:00 WBC 10.6 H RBC 4.29 Hgb 11.7 Hct 35.0 L MCV 81.6 MCH 27.1 MCHC 33.3 RDW 16.2 H Plt Count 325 D MPV 9.8 D Sodium 142 Potassium 4.0 Chloride 107 Carbon Dioxide 26 Anion Gap 9 BUN 7 Creatinine 0.8 Creat Clearance w eGFR > 60 Random Glucose 118 H Calcium 9.3 Total Bilirubin 0.4 AST 12 L ALT 32 Alkaline Phosphatase 77 Total Protein 6.5 Albumin 2.9 L Urine Color Yellow Urine Appearance Clear Urine pH 5.0 Ur Specific [place] 1.020 Urine Protein Negative Urine Glucose (UA) Negative Urine Ketones Negative Urine Blood Negative Urine Nitrite Negative Urine Bilirubin Negative Urine Urobilinogen Negative Ur Leukocyte Esterase Negative aaox3 ambulating no acute distress Assessment: 05/12/18 11:40 withdrawal sx Plan: continue detox increase fluids
[2018-05-12] MEDS: THIAMINE HCL 100 MG TABLET (FP) PO SCH (22:13)
[2018-05-12] MEDS: MELATONIN 5 MG TABLETS PO PRN (22:15)
[2018-05-13] MEDS: diazePAM 5 MG TABLET PO PRN (05:52)
[2018-05-13] MEDS: PRENATAL VITAMINS W/ FOLIC ACID TABLET (FP) PO SCH (10:38)
[2018-05-13] MEDS: cloNIDine HCL 0.1 MG TABLET PO SCH ×2 (10:38→22:29)
[2018-05-13] MEDS: METHADONE HCL 5 MG TABLET (FOR DETOX USE ONLY) PO SCH (10:39)
[2018-05-13] MEDS: NICOTINE 21 MG/24 HOURS TOPICAL PATCH TD SCH (10:39)
[2018-05-13] MEDS: diazePAM 5 MG TABLET PO SCH ×2 (10:39→22:29)
[2018-05-13] MEDS: CYCLOBENZAPRINE HCL 10 MG TABLET (FP) PO PRN (10:39)
--- NOTE | 2018-05-13 13:38 | PN ---
S Progress Note Note: c/o of nausea, back pain, interrupted sleep Vital Signs Temperature 97.9 F 05/13/18 13:28 Pulse Rate 64 05/13/18 13:28 Respiratory Rate 18 05/13/18 13:28 Blood Pressure 111/57 L 05/13/18 13:28 O2 Sat by Pulse Oximetry (%) Laboratory Last Values WBC 10.6 K/mm3 (4.0-10.0) H 05/12/18 07:00 RBC 4.29 M/mm3 (4.00-5.60) 05/12/18 07:00 Hgb 11.7 GM/dL (11.7-16.9) 05/12/18 07:00 Hct 35.0 % (35.4-49) L 05/12/18 07:00 MCV 81.6 fl (80-96) 05/12/18 07:00 MCH 27.1 pg (25.7-33.7) 05/12/18 07:00 MCHC 33.3 g/dl (32.0-35.9) 05/12/18 07:00 RDW 16.2 % (11.9-15.9) H 05/12/18 07:00 Plt Count 325 K/MM3 (134-434) D 05/12/18 07:00 MPV 9.8 fl (7.5-11.1) D 05/12/18 07:00 Sodium 142 mmol/L (136-145) 05/12/18 07:00 Potassium 4.0 mmol/L (3.5-5.1) 05/12/18 07:00 Chloride 107 mmol/L (98-107) 05/12/18 07:00 Carbon Dioxide 26 mmol/L (21-32) 05/12/18 07:00 Anion Gap 9 MMOL/L (8-16) 05/12/18 07:00 BUN 7 mg/dL (7-18) 05/12/18 07:00 Creatinine 0.8 mg/dL (0.55-1.3) 05/12/18 07:00 Creat Clearance w eGFR > 60 (>60) 05/12/18 07:00 Random Glucose 118 mg/dL (74-106) H 05/12/18 07:00 Calcium 9.3 mg/dL (8.5-10.1) 05/12/18 07:00 Total Bilirubin 0.4 mg/dL (0.2-1) 05/12/18 07:00 AST 12 U/L (15-37) L 05/12/18 07:00 ALT 32 U/L (13-61) 05/12/18 07:00 Alkaline Phosphatase 77 U/L (45-117) 05/12/18 07:00 Total Protein 6.5 g/dl (6.4-8.2) 05/12/18 07:00 Albumin 2.9 g/dl (3.4-5.0) L 05/12/18 07:00 Urine Color Yellow 05/10/18 14:40 Urine Appearance Clear 05/10/18 14:40 Urine pH 5.0 (5.0-8.0) 05/10/18 14:40 Ur Specific [place] 1.020 (1.001-1.035) 05/10/18 14:40 Urine Protein Negative (NEGATIVE) 05/10/18 14:40 Urine Glucose (UA) Negative (NEGATIVE) 05/10/18 14:40 Urine Ketones Negative (NEGATIVE) 05/10/18 14:40 Urine Blood Negative (NEGATIVE) 05/10/18 14:40 Urine Nitrite Negative (NEGATIVE) 05/10/18 14:40 Urine Bilirubin Negative (<2.0 mg/dL) 05/10/18 14:40 Urine Urobilinogen Negative mg/dL (0.2-1.0) 05/10/18 14:40 Ur Leukocyte Esterase Negative (NEGATIVE) 05/10/18 14:40 RPR Titer Nonreactive (NONREACTIVE) 05/12/18 07:00 Aox3 no distress no adventitious breath sounds full ROM ambulating in the unit, + back pain withdrawal sx Plan: zofran prn increase fluids continue detox continue to monitor
[2018-05-13] MEDS: THIAMINE HCL 100 MG TABLET (FP) PO SCH (22:28)
[2018-05-13] MEDS: MELATONIN 5 MG TABLETS PO PRN (22:30)
[2018-05-14] MEDS: IBUPROFEN 400 MG TABLET (FP) PO PRN ×2 (05:55→19:09)
[2018-05-14] MEDS: CYCLOBENZAPRINE HCL 10 MG TABLET (FP) PO PRN ×2 (05:56→22:29)
[2018-05-14] MEDS ORDERED: METHADONE HCL 10 MG TABLET (FOR DETOX USE ONLY) PO SCH (10:00)
[2018-05-14] MEDS ORDERED: diazePAM 5 MG TABLET PO SCH (10:00)
[2018-05-14] MEDS: PRENATAL VITAMINS W/ FOLIC ACID TABLET (FP) PO SCH (10:46)
[2018-05-14] MEDS: NICOTINE 21 MG/24 HOURS TOPICAL PATCH TD SCH (10:46)
[2018-05-14] MEDS: cloNIDine HCL 0.1 MG TABLET PO SCH ×2 (10:46→22:27)
--- NOTE | 2018-05-14 16:52 | PN ---
[facility]HS Progress Note (SOAP) Subjective: feeling better social with peers in day room no sweat no body aches Objective: 05/14/18 16:51 Vital Signs Temperature 98.2 F 05/14/18 14:06 Pulse Rate 84 05/14/18 14:06 Respiratory Rate 16 05/14/18 14:06 Blood Pressure 109/57 L 05/14/18 14:06 O2 Sat by Pulse Oximetry (%) Laboratory Last Values WBC 10.6 K/mm3 (4.0-10.0) H 05/12/18 07:00 RBC 4.29 M/mm3 (4.00-5.60) 05/12/18 07:00 Hgb 11.7 GM/dL (11.7-16.9) 05/12/18 07:00 Hct 35.0 % (35.4-49) L 05/12/18 07:00 MCV 81.6 fl (80-96) 05/12/18 07:00 MCH 27.1 pg (25.7-33.7) 05/12/18 07:00 MCHC 33.3 g/dl (32.0-35.9) 05/12/18 07:00 RDW 16.2 % (11.9-15.9) H 05/12/18 07:00 Plt Count 325 K/MM3 (134-434) D 05/12/18 07:00 MPV 9.8 fl (7.5-11.1) D 05/12/18 07:00 Sodium 142 mmol/L (136-145) 05/12/18 07:00 Potassium 4.0 mmol/L (3.5-5.1) 05/12/18 07:00 Chloride 107 mmol/L (98-107) 05/12/18 07:00 Carbon Dioxide 26 mmol/L (21-32) 05/12/18 07:00 Anion Gap 9 MMOL/L (8-16) 05/12/18 07:00 BUN 7 mg/dL (7-18) 05/12/18 07:00 Creatinine 0.8 mg/dL (0.55-1.3) 05/12/18 07:00 Creat Clearance w eGFR > 60 (>60) 05/12/18 07:00 Random Glucose 118 mg/dL (74-106) H 05/12/18 07:00 Calcium 9.3 mg/dL (8.5-10.1) 05/12/18 07:00 Total Bilirubin 0.4 mg/dL (0.2-1) 05/12/18 07:00 AST 12 U/L (15-37) L 05/12/18 07:00 ALT 32 U/L (13-61) 05/12/18 07:00 Alkaline Phosphatase 77 U/L (45-117) 05/12/18 07:00 Total Protein 6.5 g/dl (6.4-8.2) 05/12/18 07:00 Albumin 2.9 g/dl (3.4-5.0) L 05/12/18 07:00 Urine Color Yellow 05/10/18 14:40 Urine Appearance Clear 05/10/18 14:40 Urine pH 5.0 (5.0-8.0) 05/10/18 14:40 Ur Specific [place] 1.020 (1.001-1.035) 05/10/18 14:40 Urine Protein Negative (NEGATIVE) 05/10/18 14:40 Urine Glucose (UA) Negative (NEGATIVE) 05/10/18 14:40 Urine Ketones Negative (NEGATIVE) 05/10/18 14:40 Urine Blood Negative (NEGATIVE) 05/10/18 14:40 Urine Nitrite Negative (NEGATIVE) 05/10/18 14:40 Urine Bilirubin Negative (<2.0 mg/dL) 05/10/18 14:40 Urine Urobilinogen Negative mg/dL (0.2-1.0) 05/10/18 14:40 Ur Leukocyte Esterase Negative (NEGATIVE) 05/10/18 14:40 RPR Titer Nonreactive (NONREACTIVE) 05/12/18 07:00 lab noted Assessment: 05/14/18 16:51 mild withdrawal sx Plan: medically supervised detox
[2018-05-14] MEDS: THIAMINE HCL 100 MG TABLET (FP) PO SCH (22:27)
[2018-05-14] MEDS: MELATONIN 5 MG TABLETS PO PRN (22:28)
[2018-05-15] MEDS: IBUPROFEN 400 MG TABLET (FP) PO PRN (05:52)
[2018-05-15] MEDS ORDERED: METHADONE HCL 5 MG TABLET (FOR DETOX USE ONLY) PO SCH (06:00)
[2018-05-15 06:09] VITALS: BP 145/79; PULSE 58; TEMP 97.5
--- NOTE | 2018-05-15 08:29 | DS ---
[facility] Detox Discharge Summary Admission Date: 05/10/18 Discharge Date: 05/15/18 - History Present History: Opioid Dependence, Sedative Dependence Additional Comments: 32 years old male admitted on 05/10/18 for opiate and benzo withdrawal sx completed detox regimen tolerated well denies opiate and benzo withdrawal sx alert oriented x 3 no acute distress aftercare [facility] - Physical Exam Results Vital Signs: Vital Signs Temperature 97.5 F L 05/15/18 06:00 Pulse Rate 58 L 05/15/18 06:00 Respiratory Rate 20 05/15/18 06:00 Blood Pressure 145/79 05/15/18 06:00 O2 Sat by Pulse Oximetry (%) Pertinent Admission Physical Exam Findings: opiate and benzo withdrawal sx Vital Signs Temperature 97.5 F L 05/15/18 06:00 Pulse Rate 58 L 05/15/18 06:00 Respiratory Rate 20 05/15/18 06:00 Blood Pressure 145/79 05/15/18 06:00 O2 Sat by Pulse Oximetry (%) Laboratory Last Values WBC 10.6 K/mm3 (4.0-10.0) H 05/12/18 07:00 RBC 4.29 M/mm3 (4.00-5.60) 05/12/18 07:00 Hgb 11.7 GM/dL (11.7-16.9) 05/12/18 07:00 Hct 35.0 % (35.4-49) L 05/12/18 07:00 MCV 81.6 fl (80-96) 05/12/18 07:00 MCH 27.1 pg (25.7-33.7) 05/12/18 07:00 MCHC 33.3 g/dl (32.0-35.9) 05/12/18 07:00 RDW 16.2 % (11.9-15.9) H 05/12/18 07:00 Plt Count 325 K/MM3 (134-434) D 05/12/18 07:00 MPV 9.8 fl (7.5-11.1) D 05/12/18 07:00 Sodium 142 mmol/L (136-145) 05/12/18 07:00 Potassium 4.0 mmol/L (3.5-5.1) 05/12/18 07:00 Chloride 107 mmol/L (98-107) 05/12/18 07:00 Carbon Dioxide 26 mmol/L (21-32) 05/12/18 07:00 Anion Gap 9 MMOL/L (8-16) 05/12/18 07:00 BUN 7 mg/dL (7-18) 05/12/18 07:00 Creatinine 0.8 mg/dL (0.55-1.3) 05/12/18 07:00 Creat Clearance w eGFR > 60 (>60) 05/12/18 07:00 Random Glucose 118 mg/dL (74-106) H 05/12/18 07:00 Calcium 9.3 mg/dL (8.5-10.1) 05/12/18 07:00 Total Bilirubin 0.4 mg/dL (0.2-1) 05/12/18 07:00 AST 12 U/L (15-37) L 05/12/18 07:00 ALT 32 U/L (13-61) 05/12/18 07:00 Alkaline Phosphatase 77 U/L (45-117) 05/12/18 07:00 Total Protein 6.5 g/dl (6.4-8.2) 05/12/18 07:00 Albumin 2.9 g/dl (3.4-5.0) L 05/12/18 07:00 Urine Color Yellow 05/10/18 14:40 Urine Appearance Clear 05/10/18 14:40 Urine pH 5.0 (5.0-8.0) 05/10/18 14:40 Ur Specific [place] 1.020 (1.001-1.035) 05/10/18 14:40 Urine Protein Negative (NEGATIVE) 05/10/18 14:40 Urine Glucose (UA) Negative (NEGATIVE) 05/10/18 14:40 Urine Ketones Negative (NEGATIVE) 05/10/18 14:40 Urine Blood Negative (NEGATIVE) 05/10/18 14:40 Urine Nitrite Negative (NEGATIVE) 05/10/18 14:40 Urine Bilirubin Negative (<2.0 mg/dL) 05/10/18 14:40 Urine Urobilinogen Negative mg/dL (0.2-1.0) 05/10/18 14:40 Ur Leukocyte Esterase Negative (NEGATIVE) 05/10/18 14:40 RPR Titer Nonreactive (NONREACTIVE) 05/12/18 07:00 lab noted - Treatment Hospital Course: Detox Protocol Followed, Detoxed Safely, Responded well, Discharged Condition Good, Rehab Referral Accepted Patient has Accepted a Rehab Referral to: [facility] - Medication Discharge Medications: Ambulatory Orders Unobtainable 05/10/18 - Diagnosis (1) Nicotine dependence Status: Acute Qualifiers: Nicotine product type: cigarettes Substance use status: in withdrawal Qualified Code(s): F17.213 - Nicotine dependence, cigarettes, with withdrawal (2) Opioid dependence with withdrawal Status: Acute - AMA Did Patient Leave Against Medical Advice: No
== END 2018-05-15 08:57 | disposition home or self-care (01) | DRG 773 ==
LOC: YASAS 10:25 → Y6N 11:51
PROC: HZ2ZZZZ Detoxification Services for Substance Abuse Treatment (ICD-10-PCS; principal; 2018-05-10)
DX: F11.23 Opioid dependence with withdrawal (principal); F13.230 Sedative, hypnotic or anxiolytic dependence with withdrawal, uncomplicated; F12.20 Cannabis dependence, uncomplicated; F17.213 Nicotine dependence, cigarettes, with withdrawal; F19.282 Other psychoactive substance dependence with psychoactive substance-induced sleep disorder; F32.9 Major depressive disorder, single episode, unspecified; E66.01 Morbid (severe) obesity due to excess calories; Z68.43 Body mass index [BMI] 50.0-59.9, adult; Z63.4 Disappearance and death of family member
CPT/HCPCS: 36415; 80053; 81003; 85027; 86593; 93005; 93010; J0735; Q0162